=== PATIENT | female | born 1995 | race Caucasian/White ===

== ENCOUNTER 2022-03-21 21:26 | Emergency (ER) | payer SELFPAY ==
[2022-03-21 21:36] VITALS: BP 125/73; PULSE 60; RESP 18; TEMP 36.5; O2SAT 100
--- NOTE | 2022-03-21 21:48 | ED.GENADUL_ITS ---
Discharge Plan Disposition Patient Disposition: HOME Condition: Stable Discharge Details Chief Complaint: Laceration Clinical Impression: Laceration of knee, left Primary Care Provider: Enriqueta Franklin ED Provider: Nitish Maurer Home Meds and New Rx's Prescriptions: No Action No Known Home Meds Discharge Instructions Instructions: Laceration (ED) Additional Instructions: return in 10 days for evaluation for suture removal return sooner if signs of infection such as spreading redness or yellow/white discharge from the wound. Medical Decision Making 26 yo female was moving a chicken coop piece and slipped and cut her left knee on metal of the truck. Denies hitting her head or other injuries. She denies any head pain, neck pain, chest pain, abdomen pain. She has a 2cm laceration running horizontally over the left patella that is superficial, has full rom of the knee, no bony tenderness, intact distal sensation. Will require sutures based on location over the joint line. No tenderness to suggest fracutre and was cut tulio piece of metal so doubt foreign body,do not feel xray indicated. No findings to suggest tendon or neurovascular injury. She is not sure of exact date of last tetanus vaccine but states it has been within 5 years wound closed with 4 sutures without complications, advised to return in 10 days for suture removal, return precautions given Differential Diagnosis Differential Diagnosis: laceration, abrasion HPI General Mode of arrival: ambulatory . Date/Time Provider Initiated Documentation: 03/21/22 21:29 . Limitations to Documentation: no limitations . Information obtained by: patient . History of Present Illness 26 year old F presents to the emergency department with the chief complaint of left knee laceration, described as moderate, Patient started experiencing this hour(s) (1) and it has been constant. No relieving factors improve symptom(s), No exacerbating factors reported . Patient notes no other symptoms.. Patient did receive the following treatments prior to arrival, none Related Data Home Medications Medication Instructions Recorded Confirmed Unknown [No Known Home Meds] 03/21/22 03/21/22 Allergies Allergy/AdvReac Type Severity Reaction Status Date / Time No Known Allergies Allergy Unverified 03/21/22 21:41 General Stated Complaint: Laceration MARISSA: 4 Review of Systems All systems reviewed & are unremarkable except as noted in HPI and below Constitutional Constitutional: Denies chills, Denies fever(s) and Denies weakness Cardiovascular Cardiovascular: Denies chest pain and Denies dyspnea Respiratory Respiratory: Denies cough and Denies dyspnea Gastrointestinal Gastrointestinal: Denies abdominal pain, Denies nausea and Denies vomiting Musculoskeletal Musculoskeletal: Denies joint swelling Integumentary/Breasts Skin/Breast: Denies rash Neurologic Neurologic: Denies weakness PFSH All Active Problems (Updated 03/21/22 @ 22:06 by Nitish Maurer MD) Laceration of knee, left (Acute) Social History Smoking/Tobacco Use Status: Never Smoking risk assessment performed?: Yes Alcohol Intake: current Alcohol Intake frequency: holidays/special occasions only Drug use: Never Substance use type: does not use Do you feel safe at home: Yes Do you feel safe in your relationship?: Yes Exam Const General: no acute distress Orientation: alert HENMT Head: normal to inspection Ears: external ears normal General nose exam: external nose normal Mouth: moist mucous membranes Eyes General: appearance normal, both eyes and all related structures Neck Neck: normal visual inspection Resp Effort & Inspection: normal respiratory effort and able to speak in complete sentences Cardio Rate: regular rate Skin General skin exam: no rashes or lesions noted Neuro General: patient alert and patient oriented x3 Extrem General: full ROM and capillary refill normal Psych Mental Status: mental status grossly normal Course Vital Signs Vital signs: Vital Signs Temperature 36.5 C 03/21/22 21:36 Pulse 60 03/21/22 21:36 Respiratory Rate 18 03/21/22 21:36 Blood Pressure 125/73 03/21/22 21:36 Pulse Oximetry 100 03/21/22 21:36 Temperature 36.5 C 03/21/22 21:36 Temperature Source Temporal Artery Scan 03/21/22 21:36 Pulse 60 03/21/22 21:36 Respiratory Rate 18 03/21/22 21:36 Respiratory Effort Non-Labored 03/21/22 21:39 Blood Pressure 125/73 03/21/22 21:36 Blood Pressure Position Sitting 03/21/22 21:36 Pulse Oximetry 100 03/21/22 21:36 Oxygen Delivery Method Room Air 03/21/22 21:36 Oxygen Flow Rate 0 03/21/22 21:36 Pain Level 0 03/21/22 21:36 Procedures Laceration Laceration 1: Site: lower extremity Side (If applicable): left Size (cm): 2 Description: linear Depth: simple, single layer Local Anesthetic: Lidocaine 1% Amount of anesthesia used (mL): 6 Pre-repair: wound explored and irrigated extensively Skin layer closed with: nylon Size (cm): 4-0 Number of sutures: 4 Technique: simple, interrupted
== END 2022-03-21 22:18 | disposition home or self-care (01) ==
PROVIDERS: Emergency Provider Emergency Medicine; PCP Registered Nurse
DX: S81.012A Laceration without foreign body, left knee, initial encounter (principal); W45.8XXA Other foreign body or object entering through skin, initial encounter; Y93.89 Activity, other specified
CPT/HCPCS: 12001; 99281; 99282